=== PATIENT | male | born 1985 | race African-American/Black ===

== ENCOUNTER 2017-04-13 18:35 | Emergency (ER) | payer MEDICAID, MEDICARE ==
[~2017-04-13] VITALS: Ht 182.9 cm; Wt 68.0 kg
[~2017-04-13 18:35] MED LIST: ALBU6.7H IH
[2017-04-13] MEDS ORDERED: IPRATROPIUM BROMIDE 0.5 MG/2.5 ML NEB SOLUTION NEB ONE (20:00)
[2017-04-13] MEDS ORDERED: ALBUTEROL SULFATE 2.5 MG/0.5 ML NEB SOLUTION NEB ONE (20:00)
[2017-04-13 20:55] VITALS: BP 125/75
== END 2017-04-13 20:59 | disposition home or self-care (01) ==
LOC: EMS 18:37
DX: J45.909 Unspecified asthma, uncomplicated (principal); R03.0 Elevated blood-pressure reading, without diagnosis of hypertension; F17.210 Nicotine dependence, cigarettes, uncomplicated
CPT/HCPCS: 71020; 94640; 99284